=== PATIENT | male | born 1955 | race Caucasian/White ===

== ENCOUNTER 2016-07-18 20:30 | Emergency (ER) | payer BC ==
--- NOTE | 2016-07-18 21:04 | ERNOTE ---
Medical Problem HPI - Narrative Date of Service: 07/18/16 - General Chief Complaint: General Assessment Time Seen by Provider: 07/18/16 20:48 Source: patient Exam Limitations: no limitations - Immun/Allergies/Home Medications Immunizations: IMMUNIZATION HX Immunizations Up to Date Yes History of Influenza Vaccine Yes Hx Pneumococcal Vaccination No Allergies/Adverse Reactions: Allergies No Known Allergies Allergy (Verified 07/18/16 20:46) Home Medications: HOME MEDICATIONS ALPRAZolam [Xanax] 0.5 mg PO HS PRN 10/18/12 [Last Taken 01/13/16] Omeprazole [Prilosec] 40 mg PO DAILY 10/18/12 [Last Taken 11/10/13] Testosterone Cypionate [Depo-Testosterone] 200 mg IM Q14D 11/17/13 [Last Taken 01/04/16] - History of Present History Narrative: Pt. comes in with c/o elevated blood pressure. Pt. states taht [place] [facility] his blood pressure was 170 systolic and it was recommended that he go to the emergency room. Pt. denies any chest pain, SOB, headache, NVD, fever, recent illness, but is being followed by his primary physician fro monitoring of hypertension with lifestyle and diet changes. Review of Systems - Review of Systems Constitutional: Present: no symptoms reported. Absent: recent illness, fever, chills, weakness, fatigue, malaise EYE: Present: no symptoms reported ENT: Present: no symptoms reported Respiratory: Present: no symptoms reported. Absent: shortness of breath, cough , wheezing Cardiology: Present: no symptoms reported. Absent: chest pain, palpitations, edema Gastrointestinal/Abdominal: Present: no symptoms reported Genitourinary: Present: no symptoms reported. Absent: frequency, decreased urinary output Musculoskeletal: Present: no symptoms reported. Absent: back pain, joint pain Skin: Present: no symptoms reported. Absent: rash, change in color Neurological: Present: no symptoms reported. Absent: headache, dizziness/light- headedness, numbness, tingling All Other Systems: All systems neg except as marked - Patient's Past Medical History Patient History - Medical: GERD, Other Patient History - Cardiac/Respiratory: Pneumonia Patient History - Cancer: No Hx of Cancer Patient History - Surgical Procedures: Colonoscopy, Other Patient History - Other: None - Family History Mother Family History - Medical: , No pertinent hx Family History - Cardiac/Respiratory: CHF Father Family History - Medical: , Diabetes Type 2 Family History - Cardiac/Respiratory: CHF, Myocardial Infarction - Social History Living Situations: spouse Abuse History: No History of abuse Psych History: No pertinent hx Smoking Status: Former smoker Have you smoked in the past 12 months: No Do you dip or chew tobacco: No Alcohol Use: other Drug Use: none - Immunizations Immunizations Up to Date: Yes Hx Pneumococcal Vaccination: No History of Influenza Vaccine: Yes Physical Exam - Physical Exam General Appearance: Present: wd/wn, alert, no apparent distress Eye Exam: Normal inspection: bilateral, PERRL: bilateral, EOMI: bilateral Ears, Nose, Throat: Present: normal ENT inspection, normal pharynx Neck: Present: normal inspection, nontender. Absent: lymphadenopathy (R), lymphadenopathy (L) Respiratory: Present: no respiratory distress, normal breath sounds, no accessory muscle use, chest nontender, lungs clear Cardiovascular/Chest: Present: regular rate, rhythm, no murmur, normal peripheral pulses Gastrointestinal/Abdominal: Present: normal bowel sounds, nontender, nondistended, soft, no organomegaly Back Exam: Present: normal inspection, normal range of motion, no CVA tenderness , no vertebral tenderness Extremity Exam: Present: normal inspection Neurological Exam: Present: alert, oriented, normal mood/affect, no motor/ sensory deficits, public information coordinator II-XII nml as tested, normal cerebellar test Skin Exam: Present: normal color, warm/dry. Absent: skin rash ED Progress - Date and Time Seen: Date and Time: 07/18/16 21:11 Reviewed labs from 07/14 and there are no abnormalities that would lead to high blood pressure. Blood pressure here not concerning for medical emergency and pt. would like to go home without further testing and continue to monitor his own blood pressure as I have discussed with pt. that he likely needs to be on medications and should discuss with his PCP and he agrees with this. - Vital Signs Patient's Vital Signs:: I have reviewed the patient's vital signs. Vital Signs: Vital Signs 07/18/16 20:35 Temperature 37.1 C Pulse Rate 82 Respiratory 14 Rate Blood Pressure 159/97 O2 Sat by Pulse 95 Oximetry - Progress/Reassessment Chief Complaint: General Assessment Departure - Departure Clinical Impression: Borderline systolic hypertension Disposition: Home self-care Condition: Good Instructions: Hypertension, [id number] Additional Instructions: Please follow up with Dr Dorado and discuss starting on blood pressure medicines. Referrals: Faheem Dorado DO [Primary Care Provider] -
[2016-07-18 21:35] VITALS: BP 144/82
== END 2016-07-18 21:34 | disposition home or self-care (01) ==
LOC: ER 20:30
DX: R03.0 Elevated blood-pressure reading, without diagnosis of hypertension (principal); K21.9 Gastro-esophageal reflux disease without esophagitis

== ENCOUNTER 2017-03-03 06:04 | Day surgery (SDC) | payer BC ==
[~2017-03-03 06:04] MED LIST: RINGER'S SOLUTION,LACTATED 1,000 ML IV PRN
[2017-03-03] MEDS ORDERED: RINGER'S SOLUTION,LACTATED 1,000 ML IV PRN (07:42)
[2017-03-03 08:02] VITALS: BP 127/81
--- NOTE | 2017-03-03 08:02 | OR ---
Operative Report - Dictated Report Narrative: Operative Report Date of operation: 03/03/2017 Preoperative diagnosis: GERD symptoms despite medication Postoperative diagnosis: Irregular GE junction very small hiatal hernia otherwise normal EGD (pathology and CLOtest pending) Operation: EGD with biopsies Surgeon: Dr Curiel Anesthesia: [facility] ALVA CRNA Indications for procedure: The patient is a 61-year-old male referred by . The patient has a lot of coughing. He has GERD symptoms controlled by medication but they returned immediately if he stops omeprazole. Findings: Irregular GE junction. Very small hiatal hernia. Otherwise normal stomach and duodenum (pathology and CLOtest pending) Narrative of procedure: The patient was identified preoperatively, and prior to the administration of anesthetic a multidisciplinary timeout was observed With the patient in the recumbent position, a bite-block was placed, intravenous sedation administered, and the patient's eyes covered with a towel. The flexible fiberoptic gastroscope was advanced into the posterior pharynx which appeared normal. The supraglottic larynx appeared normal. The cords appeared normal, moved well, and opposed in the midline. The scope was advanced under direct vision into the proximal esophagus which appeared normal. The esophagus appeared freely distensible with normal mucosa. The esophageal mucosa appeared normal down to the gastroesophageal junction which was slightly irregular however noninflamed. The GE junction appeared normally distensible. The scope was advanced into the stomach which was insufflated with air. The gastric mucosa appeared essentially normal including a retroflex view of the gastric fundus. The pylorus appeared patent. The scope was advanced into the duodenal bulb which appeared normal. The scope was advanced further to the horizontal portion of the duodenum which appeared normal, specifically the villous architecture appeared well preserved and clear bile was present. The scope was slowly withdrawn through the duodenal bulb with confirmation that no active ulcer was present. The scope was withdrawn into the stomach and pharmaceutical representative biopsies of gastric mucosa obtained for CLOtest and pathology. The biopsy sites were seen to be hemostatic. The scope was withdrawn to above the GE junction which was biopsied. The biopsy site appeared hemostatic. The insufflated air was removed from the stomach, the scope withdrawn from the patient, and the procedure terminated. The patient tolerated the anesthetic and procedure well without complication and was transferred back to the ambulatory surgery area awake and in stable condition. The patient remained stable throughout a period of postoperative observation, was able to tolerate po intake, and was up without assistance. I shared the operative findings with him and his , and he was given copies of the photographs which appear in the medical record. He was discharged home with instructions not to engage in hazardous activity today, but may return to normal activity tomorrow and advance diet as tolerated. He is to continue medications as listed in the history and physical exam. I made arrangements to contact the patient with the biopsy reports and will make further recommendation based upon that result. Reviewed and electronically signed
== END 2017-03-03 06:05 | disposition home or self-care (01) ==
LOC: AMB 06:04
PROVIDERS: ATTEND Surgery
PROC: 0DB68ZX Excision of Stomach, Via Natural or Artificial Opening Endoscopic, Diagnostic (ICD-10-PCS; 2017-03-03)
PROC: 0DB48ZX Excision of Esophagogastric Junction, Via Natural or Artificial Opening Endoscopic, Diagnostic (ICD-10-PCS; principal; 2017-03-03 07:00)
DX: K22.70 Barrett's esophagus without dysplasia (principal); K29.70 Gastritis, unspecified, without bleeding; K44.9 Diaphragmatic hernia without obstruction or gangrene; K21.9 Gastro-esophageal reflux disease without esophagitis; E78.5 Hyperlipidemia, unspecified; Z87.891 Personal history of nicotine dependence; Z68.29 Body mass index [BMI] 29.0-29.9, adult